=== PATIENT | female | born 1990 | race Caucasian/White ===

== ENCOUNTER → 2018-04-30 | Emergency (ER) | payer OTHER ==
[~2018-04-30] VITALS: Ht 154.9 cm; Wt 61.7 kg
[~2018-04-30] MED LIST: CITRANATAL B-C1 EAC1; CITRANATAL B-C1 EAC1 PO; FOLIC + B12 TAB1 TAB; FOLIC ACID1 MG; LABETALOL HCL100 MG; LABETALOL HCL100 MG PO; MACROBID 100 M100 MG PO; MATULANE50 MG; NIFEDIPINE ER30 MG PO; PERCOGESIC 3251 EACH PO
== END | disposition left against medical advice (07) ==
LOC: ER 19:46
DX: Z53.20 Procedure and treatment not carried out because of patient's decision for unspecified reasons (principal)

== ENCOUNTER 2018-10-25 20:53 | Emergency (ER) | payer OTHER ==
[~2018-10-25] VITALS: Ht 154.9 cm; Wt 63.5 kg
== END 2018-10-25 21:48 | disposition home or self-care (01) ==
LOC: ER 20:53
DX: O21.0 Mild hyperemesis gravidarum (principal); Z34.01 Encounter for supervision of normal first pregnancy, first trimester

== ENCOUNTER 2018-11-14 12:00 | Emergency (ER) | payer OTHER ==
[~2018-11-14] VITALS: Ht 154.9 cm; Wt 62.1 kg
== END 2018-11-14 16:50 | disposition home or self-care (01) ==
LOC: ER 12:00
DX: O20.0 Threatened abortion (principal)

== ENCOUNTER 2018-12-07 21:57 | Emergency (ER) | payer OTHER ==
[~2018-12-07] VITALS: Ht 160 cm; Wt 60.3 kg
[~2018-12-07 21:57] MED LIST changes: +MAALOX MAXIMUM355 ML PO; +ZOFRAN4 MG PO
== END 2018-12-08 00:07 | disposition home or self-care (01) ==
LOC: ER 21:57
DX: O21.0 Mild hyperemesis gravidarum (principal); Z34.01 Encounter for supervision of normal first pregnancy, first trimester

== ENCOUNTER 2018-12-13 20:25 | Inpatient (IN) | payer OTHER ==
[~2018-12-13] VITALS: Ht 154.9 cm; Wt 57.2 kg
[2018-12-13] MEDS ORDERED: ZANTAC300 MG (20:52)
== END 2018-12-18 13:33 | disposition home or self-care (01) | DRG 833 ==
LOC: ER 20:25 → SEC-K 12-14 08:17 → OB/GYN 12-14 08:17
PROVIDERS: ADMIT Obstetrics & Gynecology
DX: O21.0 Mild hyperemesis gravidarum (principal); E87.6 Hypokalemia; R00.8 Other abnormalities of heart beat; Z34.81 Encounter for supervision of other normal pregnancy, first trimester

== ENCOUNTER 2018-12-27 17:15 | Inpatient (IN) | payer OTHER ==
[~2018-12-27] VITALS: Ht 154.9 cm; Wt 61.2 kg
[~2018-12-27 17:15] MED LIST changes: +ZANTAC300 MG
[2018-12-27] MEDS ORDERED: OBSTETRIX DHA1 EACH PO (17:28)
== END 2019-01-02 13:23 | DRG 833 ==
LOC: ER 17:15 → OB/GYN 12-28 12:50
PROVIDERS: ADMIT Obstetrics & Gynecology
PROC: 4A1HXCZ Monitoring of Products of Conception, Cardiac Rate, External Approach (ICD-10-PCS; principal; 2018-12-28)
DX: O21.1 Hyperemesis gravidarum with metabolic disturbance (principal); O26.892 Other specified pregnancy related conditions, second trimester; E87.6 Hypokalemia; K52.89 Other specified noninfective gastroenteritis and colitis; Z34.02 Encounter for supervision of normal first pregnancy, second trimester

== ENCOUNTER 2019-02-09 19:18 | Outpatient (CLI) | payer OTHER ==
[~2019-02-09 19:18] MED LIST changes: +OBSTETRIX DHA1 EACH PO
== END 2019-02-10 09:55 | disposition home or self-care (01) ==
LOC: OBS/DEL 19:18
DX: O26.892 Other specified pregnancy related conditions, second trimester (principal); R10.2 Pelvic and perineal pain

== ENCOUNTER 2019-04-15 13:31 | Inpatient (IN) | payer OTHER ==
[~2019-04-15] VITALS: Ht 154.9 cm; Wt 1.4 kg
[2019-04-15] MEDS ORDERED: ASPIR 8181 MG PO (15:24)
== END 2019-04-25 13:52 | disposition home or self-care (01) | DRG 785 ==
LOC: LDR 13:31 → OB/GYN 04-22 15:53 → LDR 04-22 15:54 → OB/GYN 04-23 09:58
PROVIDERS: ADMIT Obstetrics & Gynecology
PROC: 4A1HXCZ Monitoring of Products of Conception, Cardiac Rate, External Approach (ICD-10-PCS; 2019-04-15)
PROC: BY4FZZZ Ultrasonography of Third Trimester, Single Fetus (ICD-10-PCS; 2019-04-15)
PROC: 0UL70ZZ Occlusion of Bilateral Fallopian Tubes, Open Approach (ICD-10-PCS; 2019-04-22)
PROC: 10D00Z1 Extraction of Products of Conception, Low, Open Approach (ICD-10-PCS; principal; 2019-04-22 12:00)
DX: O82 Encounter for cesarean delivery without indication (principal); O14.14 Severe pre-eclampsia complicating childbirth; Z3A.31 31 weeks gestation of pregnancy; Z37.0 Single live birth; Z30.2 Encounter for sterilization; O26.843 Uterine size-date discrepancy, third trimester

== ENCOUNTER 2020-01-09 16:46 | Emergency (ER) | payer OTHER ==
[~2020-01-09] VITALS: Ht 154.9 cm; Wt 76.2 kg
[~2020-01-09 16:46] MED LIST changes: +ASPIR 8181 MG PO
[2020-01-09] MEDS ORDERED: CARAFATE1 GM PO (18:18)
[2020-01-09] MEDS ORDERED: PEPCID AC20 MG PO (18:18)
== END 2020-01-09 18:28 | disposition home or self-care (01) ==
LOC: ER 16:46
DX: K29.70 Gastritis, unspecified, without bleeding (principal); R11.2 Nausea with vomiting, unspecified; Z20.828 Contact with and (suspected) exposure to other viral communicable diseases

== ENCOUNTER 2020-04-17 16:39 | Emergency (ER) | payer OTHER ==
[~2020-04-17] VITALS: Ht 154.9 cm; Wt 68.0 kg
[~2020-04-17 16:39] MED LIST changes: +CARAFATE1 GM PO; +PEPCID AC20 MG PO
[2020-04-17] MEDS ORDERED: ZOFRAN8 MG PO (21:17)
[2020-04-17] MEDS ORDERED: PEPCID AC20 MG PO (21:17)
== END 2020-04-17 22:33 | disposition home or self-care (01) ==
LOC: ER 16:39
DX: B34.9 Viral infection, unspecified (principal); R11.2 Nausea with vomiting, unspecified; Z03.818 Encounter for observation for suspected exposure to other biological agents ruled out

== ENCOUNTER 2021-12-26 20:11 | Emergency (ER) | payer OTHER ==
[~2021-12-26] VITALS: Ht 154.9 cm; Wt 64.9 kg
[~2021-12-26 20:11] MED LIST changes: +ZOFRAN8 MG PO
== END 2021-12-27 00:12 | disposition home or self-care (01) ==
LOC: ER 20:11
DX: D64.9 Anemia, unspecified (principal); Z20.822 Contact with and (suspected) exposure to COVID-19; Z91.013 Allergy to seafood

== ENCOUNTER 2022-07-19 19:24 | Emergency (ER) | payer OTHER ==
[~2022-07-19] VITALS: Ht 154.9 cm; Wt 71.2 kg
== END 2022-07-19 22:27 | disposition home or self-care (01) ==
LOC: ER 19:24
DX: J32.9 Chronic sinusitis, unspecified (principal); K29.70 Gastritis, unspecified, without bleeding; Z91.018 Allergy to other foods